=== PATIENT | female | born 1995 | race African-American/Black ===

== ENCOUNTER 2022-01-27 04:40 | Emergency (ER) | payer MEDICARE, MEDICAID ==
[2022-01-27] MEDS: cloNIDine 0.1 MG Tab PO ONE (05:09)
[2022-01-27] MEDS: hydrOXYzine HCl 25 MG Tab PO ONE (05:09)
== END 2022-01-27 06:00 | disposition home or self-care (01) ==
LOC: VM.ED 04:40
DX: F41.0 Panic disorder [episodic paroxysmal anxiety] (principal); R00.0 Tachycardia, unspecified; Z99.2 Dependence on renal dialysis
CPT/HCPCS: 94760; 99284; A9270

== ENCOUNTER 2022-01-30 09:32 | Emergency (ER) | payer MEDICARE, MEDICAID ==
[2022-01-30] MEDS: cloNIDine 0.1 MG Tab PO ONE (09:55)
[2022-01-30 10:27] LABS: CHLORIDE,CL 105 mmol/L (98-107); SODIUM,NA 144 mmol/L (136-145)
[2022-01-30 10:29] LABS: ANION GAP 16.9 mmol/L (5-15)
[2022-01-30 10:33] LABS: ESTIMATED GFR 4 mL/min (>=60)
== END 2022-01-30 11:00 | disposition home or self-care (01) ==
LOC: VM.ED 09:32
DX: F41.0 Panic disorder [episodic paroxysmal anxiety] (principal); M32.14 Glomerular disease in systemic lupus erythematosus; I16.0 Hypertensive urgency; I12.0 Hypertensive chronic kidney disease with stage 5 chronic kidney disease or end stage renal disease; N18.6 End stage renal disease; D63.1 Anemia in chronic kidney disease; E03.9 Hypothyroidism, unspecified; Z87.891 Personal history of nicotine dependence; Z79.899 Other long term (current) drug therapy
CPT/HCPCS: 36415; 80053; 85025; 86140; 99284; 99285; A9270

== ENCOUNTER 2022-02-04 03:02 | Emergency (ER) | payer MEDICARE, MEDICAID ==
[2022-02-04] MEDS: hydrOXYzine HCl 25 MG Tab PO ONE (03:17)
[2022-02-04] MEDS: Albuterol/Ipratropium 3.0-0.5 MG/3 ML Neb Soln NEB ONE (03:17)
[2022-02-04] MEDS: cloNIDine 0.1 MG Tab PO ONE (03:17)
[2022-02-04] MEDS ORDERED: hydrOXYzine HCl 25 MG Tab ONE (03:22)
[2022-02-04] MEDS: LORazepam 2 MG/ML SDV IM ONE (03:48)
== END 2022-02-04 04:08 | disposition home or self-care (01) ==
LOC: VM.ED 03:02
DX: F41.0 Panic disorder [episodic paroxysmal anxiety] (principal); N18.6 End stage renal disease; D63.1 Anemia in chronic kidney disease; Z79.899 Other long term (current) drug therapy
CPT/HCPCS: 94640; 96372; 99284; 99285; A9270-GY; J2060; J7620-GY

== ENCOUNTER 2022-02-16 02:00 | Emergency (ER) | payer MEDICARE, MEDICAID ==
[2022-02-16] MEDS ORDERED: Acetaminophen/HYDROcodone 325-5 MG Tab PO ONE (02:30)
[2022-02-16] MEDS ORDERED: HYDROmorphone 1 MG/ML Syringe SUBCUT ONE ×2 (02:35)
[2022-02-16] MEDS ORDERED: Take Home: traMADol 50 MG, 4 Tab Pack PO ONE (03:32)
== END 2022-02-16 03:56 | disposition home or self-care (01) ==
LOC: VM.ED 02:00
DX: R07.89 Other chest pain (principal); Z79.899 Other long term (current) drug therapy; Z87.891 Personal history of nicotine dependence
CPT/HCPCS: 71045; 93005; 96372; 99283; 99285; A9270-GY; J1170

== ENCOUNTER 2022-02-16 17:59 | Emergency (ER) | payer MEDICARE, MEDICAID ==
[2022-02-16] MEDS ORDERED: Albuterol/Ipratropium 3.0-0.5 MG/3 ML Neb Soln NEB ONE (18:11)
[2022-02-16] MEDS ORDERED: cloNIDine 0.1 MG Tab PO STA (18:20)
[2022-02-16 18:59] LABS: ANION GAP 16.1 mmol/L (5-15)
[2022-02-16] MEDS ORDERED: Sodium Chloride 0.9% 1,000 ML IV ONE (19:06)
[2022-02-16] MEDS ORDERED: Sodium Chloride 0.9% 10 ML Syringe FLUSH PRN (19:06)
[2022-02-16] MEDS ORDERED: cefTRIAXone 1 GM Vial IVPUSH ONE (19:06)
[2022-02-16] MEDS ORDERED: Azithromycin 500 MG in Sodium Chloride 0.9% 250 ML IV ONE (19:07)
[2022-02-16] MEDS ORDERED: Azithromycin 250 MG Tab PO STA (20:00)
[2022-02-16] MEDS ORDERED: cefTRIAXone 1 GM, Lidocaine 1% 2.1 ML IM ONE ×2 (20:01)
[2022-02-16] MEDS ORDERED: Acetaminophen/oxyCODONE 325-5 MG Tab PO ONE (20:55)
== END 2022-02-16 22:25 | disposition short-term general hospital (02) ==
LOC: VM.ED 17:59
DX: J18.9 Pneumonia, unspecified organism (principal); I50.9 Heart failure, unspecified; D63.1 Anemia in chronic kidney disease; N18.6 End stage renal disease; Z99.2 Dependence on renal dialysis; Z79.899 Other long term (current) drug therapy
CPT/HCPCS: 36415; 71045; 80053; 83605; 85025; 94640; 96372; 99285; A9270-GY; J0696; J7620-GY